=== PATIENT | male | born 1990 | race American Indian/Alaskan Native ===

== ENCOUNTER 2017-05-16 06:26 | Emergency (ER) | payer OTHER ==
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
[2017-05-16] MEDS ORDERED: MOTRIN PO ONE (09:52)
[2017-05-16 10:16] VITALS: BP 149/91
== END 2017-05-16 10:35 | disposition home or self-care (01) ==
LOC: ED 06:26
DX: S16.1XXA Strain of muscle, fascia and tendon at neck level, initial encounter (principal); M54.5 Low back pain; Z87.891 Personal history of nicotine dependence; V89.2XXA Person injured in unspecified motor-vehicle accident, traffic, initial encounter; Y93.89 Activity, other specified; Y92.89 Other specified places as the place of occurrence of the external cause; Y99.8 Other external cause status
CPT/HCPCS: 99282